=== PATIENT | male | born 1980 | race Hispanic/Latino ===

== ENCOUNTER 2019-01-05 19:53 | Emergency (ER) | payer OTHER ==
[~2019-01-05] VITALS: Ht 175.3 cm; Wt 97.7 kg
[2019-01-05 20:17] LABS: HEMATOCRIT 41.3 % (42.0-52.0); HEMOGLOBIN 14.4 g/dl (13.5-17.5); MEAN CORPUSCULAR HEMOGLOBIN 29.8 pg (27.0-33.0); MEAN CORPUSCULAR HGB CONC 34.9 g/dl (32.0-36.5); MEAN CORPUSCULAR VOLUME 85.5 fl (80.0-96.0); PLATELET COUNT, AUTOMATED 203 10^3/uL (150-450); RED BLOOD COUNT 4.83 10^6/uL (4.30-6.10)
[2019-01-05 20:50] LABS: ALBUMIN 4.3 GM/DL (3.2-5.2); ALT/SGPT 49 U/L (12-78); BILIRUBIN,TOTAL 0.4 MG/DL (0.2-1.0); BLOOD UREA NITROGEN 16 MG/DL (7-18); CALCIUM LEVEL 9.3 MG/DL (8.5-10.1); CARBON DIOXIDE LEVEL 31 MEQ/L (21-32); CHLORIDE LEVEL 108 MEQ/L (98-107); CREATININE FOR GFR 1.22 MG/DL (0.70-1.30); GLOMERULAR FILTRATION RATE > 60.0 (>60); GLUCOSE, FASTING 84 MG/DL (70-100); POTASSIUM SERUM 4.2 MEQ/L (3.5-5.1); SODIUM LEVEL 145 MEQ/L (136-145)
[2019-01-06 02:38] VITALS: BP 126/77
[2019-01-06] MEDS ORDERED: KETOROLAC 60 MG/2 ML VIAL (J1885) IM ONE (04:45)
[2019-01-06] MEDS ORDERED: ULTR50TA8 PO (04:59)
== END 2019-01-06 05:26 | disposition home or self-care (01) ==
LOC: M ED 19:53
DX: S39.012A Strain of muscle, fascia and tendon of lower back, initial encounter (principal); X50.9XXA Other and unspecified overexertion or strenuous movements or postures, initial encounter; Y92.138 Other place on military base as the place of occurrence of the external cause; Y99.0 Civilian activity done for income or pay
CPT/HCPCS: 36415; 80053; 85027; 96372; 99284; J1885